=== PATIENT | female | born 1955 | race Caucasian/White ===

== ENCOUNTER → 2016-08-25 | Outpatient (CLI) | payer OTHER | LOC: FIMAGING 13:06 | DX: Z12.31 Encounter for screening mammogram for malignant neoplasm of breast (principal) | CPT/HCPCS: G0202 ==

== ENCOUNTER → 2016-10-16 | Outpatient (CLI) | payer OTHER | LOC: FIMAGING 08:52 | PROVIDERS: ATTEND Physician Assistant Medical | DX: M81.0 Age-related osteoporosis without current pathological fracture (principal) ==

== ENCOUNTER 2017-06-05 19:38 | Emergency (ER) | payer OTHER ==
[2017-06-05 19:45] VITALS: BP 166/92; PULSE 67; RESP 16; TEMP 97.9; O2SAT 95
--- NOTE | 2017-06-05 20:05 | EDPHY ---
HPI/HX/ROS/PE/MDM Narrative: CHIEF COMPLAINT: Right-sided visual disturbance HPI: This patient is a healthy 61 y/o female presenting for evaluation of intermittent "lightning flashes" in her right eye. One hour prior to arrival, she developed frequent intermittent small bright lines in her right eye. These happen even if her eye is closed. The episodes are unpredictable, but happen as often as several times per minute. She states "I just want you to tell me I don' t have a partially detached retina". She has not noticed any other changes including darkness or reduced peripheral vision. Se denies pain in her eyes, headache, or recent trauma to eye. The patient wears glasses for nearsightedness and astigmatism. 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 Her concern for detached retina is due to similar symptoms in a friend and in her stepfather two years ago that turned out to be a due to retinal detachment. She has never had similar symptoms in the past. She denies any numbness or weakness in her extremities. She has no further complaints. REVIEW OF SYSTEMS: Aside from elements discussed in the HPI, a comprehensive 10-point review of systems was reviewed and is negative. PMH: 1. Depression 2. Lacrimal duct obstruction 3. 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 . Lives in [place]. PHYSICAL EXAM: General:Patient is alert, in no acute distress. ENT: Eyes are normal to inspection. Normal pupils. Normal visual godoy to confrontation. Normal pressure to palpation. ENT inspection normal. Neck: Normal inspection. Full range of motion. Respiratory:No respiratory distress. Breath sounds normal bilaterally. Cardiovascular: Regular rate and rhythm. Strong peripheral pulses. Normal cap refill. Skin: Normal color. No rash. Warm and dry. Extremities: Normal appearance. Full range of motion. Neuro: Oriented x3. Normal motor function. Normal sensory function. ED Course: This 61 year old female presents with right-sided visual disturbance onset one hour prior to arrival. Eye exam unremarkable: normal pupils, normal visual godoy to confrontation, normal pressure to palpation. I told the patient I am unable to rule out retinal detachment in the emergency department, and she should follow up with ophthalmology within 36 hours. Plan to consult with photographic process screen maker front office spec. 20:[address] Azar, photographic process screen maker. He is comfortable with outpatient follow up and will see the patient tomorrow morning, and she should call mid-morning for an appointment. Reassessed patient. Discussed follow up with Dr. Azar tomorrow. Plan to discharge home in good condition. Return precautions discussed. She is comfortable with this plan. General Time Seen by Provider: 06/05/17 19:54 Initial Vital Signs: Initial Vital Signs Temperature (C) 36.6 C 06/05/17 19:41 Heart Rate 67 06/05/17 19:41 Respiratory Rate 16 06/05/17 19:41 Blood Pressure 166/92 H 06/05/17 19:41 O2 Sat (%) 95 06/05/17 19:41 O2 Delivery Mode Room Air Allergies/Adverse Reactions: No Known Allergies Allergy (Verified 06/05/17 19:45) Home Medications: Medication Instructions Recorded FLUoxetine HCL [Fluoxetine HCl] 05/03/13 Departure - Departure Disposition: Home, Routine, Self-Care Clinical Impression: Transient vision disturbance of right eye Condition: Good Instructions: Blurred Vision (ED) Additional Instructions: 1. Follow up with ophthalmology tomorrow for further evaluation. We have referred you to our photographic process screen maker front office spec. Call his office tomorrow around mid -morning. His contact information is attached. 2. Return to the emergency department for any changing or worsening symptoms or if you develop pain or loss of vision. 3. The attached instructions do not apply specifically to you as you have flashes of light rather than blurred vision, but are useful. Referrals: ELLIOT MODI [Primary Care Provider] - As per Instructions Jerardo Azar MD [Medical Doctor] - As per Instructions Report Scribed for: Zachery Soto Report Scribed by: Alma Phillips Date of Report: 06/05/17 Time of Report: 20:05 Physician Review and Approval Statement: Portions of this note were transcribed by an ED scribe. I personally performed the history, physical exam, and medical decision making; and confirm the accuracy of the information in the transcribed note.
== END 2017-06-05 20:39 | disposition home or self-care (01) ==
DX: H53.9 Unspecified visual disturbance (principal)

== ENCOUNTER → 2018-09-14 | Outpatient (CLI) | payer OTHER, MEDICARE | LOC: FIMAGING 14:05 | PROVIDERS: ATTEND Family Medicine | DX: Z12.31 Encounter for screening mammogram for malignant neoplasm of breast (principal) ==

== ENCOUNTER → 2018-09-16 | Outpatient (CLI) | payer OTHER, MEDICARE | LOC: FIMAGING 08:59 | PROVIDERS: ATTEND Family Medicine | DX: M81.0 Age-related osteoporosis without current pathological fracture (principal) ==